=== PATIENT | female | born 1955 | race Caucasian/White ===

== ENCOUNTER → 2018-03-16 | Outpatient (CLI) | payer BC | LOC: MC.RAD 11:35 | DX: Z12.31 Encounter for screening mammogram for malignant neoplasm of breast (principal) ==

== ENCOUNTER → 2018-07-05 | Outpatient (CLI) | payer BC | LOC: COL.RAD 13:45 | DX: S09.90XA Unspecified injury of head, initial encounter (principal) ==

== ENCOUNTER → 2020-06-20 | Outpatient (CLI) | payer BC | LOC: MC.RAD 15:00 | DX: Z12.31 Encounter for screening mammogram for malignant neoplasm of breast (principal) ==

== ENCOUNTER → 2021-11-14 | Outpatient (CLI) | payer MEDICARE | LOC: MC.RAD 11:24 | DX: Z12.31 Encounter for screening mammogram for malignant neoplasm of breast (principal) ==